=== PATIENT | female | born 1980 | race African-American/Black ===

== ENCOUNTER 2016-10-02 12:01 | Emergency (ER) | payer BC ==
[~2016-10-02] VITALS: Ht 175.3 cm; Wt 73.0 kg
[2016-10-02] MEDS ORDERED: SODIUM CHLORIDE 0.9% 1,000 ML IV ONE (14:17)
[2016-10-02] MEDS ORDERED: ONDANSETRON HCL 4MG/2ML VIAL IV STA (14:17)
[2016-10-02 14:47] LABS: BASOPHILS % 0.3 % (0.0-2.0); EOSINOPHILS % 0.4 % (0.0-5.0); HEMATOCRIT. 35.8 % (36.0-48.0); HEMOGLOBIN. 12.2 g/dL (12.0-16.0); LYMPHOCYTES % 30.8 % (20.0-50.0); MEAN CORPUSCULAR HEMOGLOBIN 30.4 pg (28.0-32.0); MEAN CORPUSCULAR HGB CONC 34.2 g/dL (31.0-37.0); MEAN CORPUSCULAR VOLUME 88.8 fL (81.0-99.0); MEAN PLATELET VOLUME 7.5 fl (7.4-10.4); MONOCYTES % 7.8 % (2.0-8.0); NEUTROPHILS % 60.7 % (40.0-76.0); PLATELET 300 x1000/uL (130-400); RED BLOOD CELL COUNT 4.03 mill/uL (4.2-5.4); RED CELL DISTRIBUTION WIDTH 14.1 % (11.6-14.6); WHITE BLOOD COUNT 6.1 x1000/uL (4.5-11.0)
[2016-10-02 14:48] LABS: CHLORIDE 106 mEq/L (98-107); INDEX HEMOLYSI 1 (1-3); INDEX ICTERIC 1 (1-4); INDEX LIPEMIC 1 (1-3)
[2016-10-02 14:59] LABS: ALANINE AMINOTRANSFERASE 13 IU/L (13-61); ALBUMIN 3.9 g/dL (3.4-5.0); ANION GAP 14; CALCIUM 9.1 mg/dL (8.5-10.1); CARBON DIOXIDE 26 mEq/L (21-32); LIPASE 104 IU/L (73-393); UREA NITROGEN BLOOD 7 mg/dL (7-21); eGFR > 60 mL/min (>60)
[2016-10-02 16:07] LABS: GLUCOSE URINE NEGATIVE (NEGATIVE); KETONES URINE 3+ (NEGATIVE); LEUKOCYTE ESTERASE URINE NEGATIVE (NEGATIVE); NITRITE URINE NEGATIVE (NEGATIVE); OCCULT BLOOD URINE NEGATIVE (NEGATIVE); PH URINE 6.5 (4.5-8.0); PROTEIN URINE TRACE (NEGATIVE); SPECIFIC GRAVITY URINE 1.022 (1.005-1.030); UROBILINOGEN URINE 0.2 E.U./dL (0.2-1.0)
[2016-10-02 16:09] LABS: CLARITY URINE SLIGHTLY HAZY (CLEAR); COLOR URINE YELLOW (YELLOW)
[2016-10-02 16:20] LABS: BACTERIA URINE TRACE; MUCUS URINE 1+ /lpf (< = 2+); RBC URINE 0-2 /hpf (0-2); SQUAMOUS EPITHELIAL CELL URINE FEW /lpf (RARE/1+); WBC URINE 0-2 /hpf (0-2)
[2016-10-02 17:35] VITALS: BP 120/72
== END 2016-10-02 17:55 | disposition home or self-care (01) ==
LOC: ER 14:24
DX: R11.2 Nausea with vomiting, unspecified (principal); R19.7 Diarrhea, unspecified; Z98.51 Tubal ligation status
CPT/HCPCS: 36415; 80053; 81001; 81025; 83690; 85025; 96361; 96374; 99284; J2405; J7030; Z7610